=== PATIENT | male | born 1965 | race Caucasian/White ===

== ENCOUNTER 2022-01-03 03:40 | Observation (INO) | payer BC ==
[2022-01-03] VITALS (9 sets, daily range): BP systolic 135–152; BP diastolic 79–93; PULSE 72–86; TEMP 97.1–98.3
[~2022-01-03] VITALS: Ht 182.9 cm; Wt 104.0 kg
[2022-01-03] MEDS ORDERED: HCTZ 25MG TAB25 MG PO (04:42)
[2022-01-03] MEDS ORDERED: ALTACE 10MG TAB10 MG PO (04:42)
[2022-01-03] MEDS ORDERED: LIPITOR20 MG PO (04:42)
--- NOTE | 2022-01-03 04:45 | NUR ---
PT ARRIVES VIA CART PER EMS TO ROOM 328. IS ALERT AND ORIENTED X4. RATES PAIN 3/10 TO RLQ. IVF TO RFA INFUSING WITHOUT REDNESS OR SWELLING. ORIENTED TO ROOM AND BED CONTROLS. IS NPO.
--- NOTE | 2022-01-03 09:35 | NUR ---
PT RESTING IN BED. PT WENT TO SURGERY @0830.
--- NOTE | 2022-01-03 10:44 | NUR ---
PT TO ROOM 328 PER BED WITH REPORT FROM DETAIL MANAGER @2690. PT IS A/O X3, LUNGS CTA, LAP INCISION CDI. IV TO LFA.
--- NOTE | 2022-01-03 10:44 | NUR ---
Initial visit; Patient in surgery, [employer] spoke with his offering God's blessings for Paul and her. She thanked [employer] Technician for stopping and letting her know of the availability of [facility] at [facility].
--- NOTE | 2022-01-03 13:23 | NUR ---
circulation worker met with patient to complete intake and discuss discharge plan. Patient reports that he lives at home with his Concetta ([phone]) in [place]. Concetat present at bedside. Patient reports to being fully independent with his ADL's and does not utilize any DME at home to assist with mobility. Patient has no home oxygen needs. PCP is and he utilizes [facility] for prescription needs. Patient denies having a DPOA-HC established and does not wish to create one at this time. Patient is planning on returning home with his once medically ready. Discharge plan: Home
[2022-01-03] MEDS ORDERED: NORCO 325 MG-51 TAB PO (15:46)
--- NOTE | 2022-01-03 17:02 | NUR ---
DISCHARGE INSTRUCTIONS REVIEWED WITH PT AND SPOUSE. QUESTIONS SOLICITED AND ANSWERED. PT LEFT UNIT PER WHEEL CHAIR.
== END 2022-01-03 17:03 | disposition home or self-care (01) ==
LOC: MEDICAL 03:40 → SURG 04:44
PROVIDERS: ADMIT Surgery
DX: K35.80 Unspecified acute appendicitis (principal); Z87.891 Personal history of nicotine dependence
CPT/HCPCS: G0378; J0330; J0690; J1100; J1885; J2405; J2704; J3010

== ENCOUNTER → 2023-04-30 | Outpatient (CLI) | payer BC ==
[~2023-04-30] MED LIST: ALTACE 10MG TAB10 MG PO; HCTZ 25MG TAB25 MG PO; LIPITOR20 MG PO; NORCO 325 MG-51 TAB PO
== END ==
LOC: CANSCHCLI → COL.CARD 10:15
DX: R07.9 Chest pain, unspecified (principal)